=== PATIENT | female | born 1990 | race Caucasian/White ===

== ENCOUNTER 2021-11-26 05:06 | Inpatient (IN) ==
[2021-11-26] MEDS ORDERED: AZITHROMYCIN 500 MG in DEXTROSE 5% 250 ML IV STA (05:54)
[2021-11-26] MEDS ORDERED: CITRIC ACID/SODIUM CITRATE 15 ML UDC PO SCH (06:00)
[2021-11-26] MEDS ORDERED: ceFAZolin 2000MG 2,000 MG/15 ML SYR IV SCH (06:00)
[2021-11-26] MEDS ORDERED: LACTATED RINGER'S 1,000 ML IV SCH ×2 (06:00→09:47)
[2021-11-26 06:21] LABS: Basophils # (auto) 0.02 K/uL (0-0.2); Basophils % (auto) 0.2 %; Eosinophils # (auto) 0.16 K/uL (0-0.5); Eosinophils % (auto) 1.4 %; Hematocrit (blood only) 35.7 % (37-47); Hemoglobin 11.6 g/dL (12.0-16.0); Immature Granulocytes # (auto) 0.06 K/uL (0.00-0.02); Immature Granulocytes % (auto) 0.5 %; Lymphocytes # (auto) 1.99 K/uL (1.2-3.4); Lymphocytes % (auto) 17.4 %; Mean Corpuscular Hemoglobin 28.7 pg (25-34); Mean Corpuscular Hgb Conc 32.5 g/dL (32-36); Mean Corpuscular Volume 88.4 fL (80-100); Mean Platelet Volume 11.4 fL (7.4-10.4); Monocytes # (auto) 0.72 K/uL (0.11-0.59); Monocytes % (auto) 6.3 %; Neutrophils # (auto) 8.46 K/uL (1.4-6.5); Neutrophils % (auto) 74.2 %; Platelet Count 213 K/uL (130-400); RDW Coefficient of Variation 13.2 % (11.5-14.5); RDW Standard Deviation 42.5 fL (36.4-46.3); Red Blood Count 4.04 M/uL (4.2-5.4); White Blood Count 11.41 K/uL (4.8-10.8)
[2021-11-26] MEDS ORDERED: ONDANSETRON INJ 2 MG/ML 2 ML VIAL ONE (06:48)
[2021-11-26] MEDS ORDERED: OXYTOCIN 10 UNITS/ML 10ML VIAL ONE (06:48)
[2021-11-26] MEDS ORDERED: MoRPHine SULFATE PF 1 MG/ML 10 ML AMP/VIAL ONE (06:49)
[2021-11-26] MEDS ORDERED: fentaNYL citrate 100 MCG/2 ML VIAL ONE (06:49)
--- NOTE | 2021-11-26 06:53 | History & Physical Report ---
Date of Service November 26, 2021 Assessment & Plan (1) SROM (spontaneous rupture of membranes): (2) Previous delivery affecting : Plan: 31 yo at 38 1/7 wga presents with SROM VSS Fetus cat 1 SROM - is CSx2, plans repeat w/o tubal. Discussed indications, risks, benefits, alternatives with risks including infection, bleeding, injury to adjacent structures (bowel, bladder, ureters, blood vessels, nerves, baby), possible need for blood transfusion and/or life saving hysterectomy, VTE. Consent reviewed in detail w/ pt and signed after all questions answered to her satisfaction. GBS neg History of Present Illness Chief Complaint: LOF Primary Care Provider: Razia Leiva, DO 31 y/o at 38 1/7 wga presents w/ LOF since 330AM. Had small trickle, then big gush, then has been gushing clear fluid since. 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 primary CS at 38 wks SAB x 4 in b/w 2016 repeat CS at 36 wks 03/2021 reports normal, hx LEEP denies hx STIs Allergies Allergy/AdvReac Type Severity Reaction Status Date / Time No Known Allergies Allergy Verified 11/26/21 05:29 Home Medications Medication Instructions Recorded Confirmed Type montelukast 10 mg tablet 10 mg PO QAM 05/25/21 11/26/21 History (Singulair) aspirin 81 mg tablet,delayed 81 mg PO QAM 10/01/21 11/26/21 History release (Adult Low Dose Aspirin) mometasone-formoterol HFA 200 2 puff INHALATION ONCE 11/26/21 11/26/21 History mcg-5 mcg/actuation aerosol inhaler (Dulera) Patient History Medical History Asthma Gestational HTN HELLP syndrome with previous History of COVID-19 Dx 08/2020 (tested for work/asymptomatic) HPV (human papilloma virus) infection Surgical History H/O section x2 H/O LEEP [place] teeth extracted Family History Grandfather (Maternal) Pancreatic cancer Diabetes Grandmother (Paternal) Diabetes Grandfather (Maternal) Diabetes Denies family history of Ovarian cancer Breast cancer Colorectal cancer Hypertension Social History Smoking Status: Never smoker Second Hand Exposure: No; Hx Alcohol Use: No Hx Substance Use: No Preferred Language: Bengali Communication Ability: Effective Product Mgmt Dev Manager Required: No Beliefs That Will Affect Care: None marital status: marital status details: Mt Champion (30) [phone] Current Living Situation: Spouse Current Living Situation Comment: spouse and 2 children. 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) Vital Signs (Past 12 Hours) Vital Signs Temp Pulse Resp BP 11/26/21 05:29 98.6 F 18 11/26/21 05:19 77 122/81 Laboratory Results Blood Type & RH -A positive Antibody Screen -Negative HCT/HGB -13.1/38.5 Platelets -231 Hep C IgG 13yrs+ Old -Non-reactive Pap Test -WNL Chlamydia -not detected Gonorrhea -not detected Rubella -immune RPR -non reactive Urine Culture/Screen -<30,000 col/ml HBsAg -non reactive HIV -non-reactive MCV -91.5 Ultrasound Genital Culture -Many gram positive rods, few WBCs present. Normal vaginal anders * TSH - 1.005 -low risk cfdna - sln -declines afp - sln Diagnostic Findings anterior plac Coding Level of Care Code None Diagnoses SROM (spontaneous rupture of membranes) Previous delivery affecting O34.219
[2021-11-26] MEDS ORDERED: PHENYLEPHRINE 100MCG/ML 5ML SYR ONE (07:39)
--- NOTE | 2021-11-26 08:27 | Anesthesiology Progress Note ---
Date of Service November 26, 2021 Anesthesia Post Procedure Vital Signs Vital Signs: Temp Pulse Resp BP Pulse Ox 11/26/21 08:24 71 122/73 11/26/21 08:23 71 100 11/26/21 07:03 75 122/85 11/26/21 05:29 37.0 C 18 11/26/21 05:19 77 122/81 Transfer of Care Handoff Completed per policy Notes Mental Status: alert / awake / arousable and participated in evaluation Patient Amnestic to Procedure: No Nausea / Vomiting: adequately controlled Pain: adequately controlled Airway Patency, RR, SpO2: stable & adequate BP & HR: stable & adequate Hydration State: stable & adequate Neuraxial Anesthesia: was administered and sensory block is resolving Anesthetic Complications: no major complications apparent and Pt Satisfied with anesthetic care
--- NOTE | 2021-11-26 08:31 | Operative Report ---
PG Post Operative Report Pre & Post Diagnosis Operation Date: 11/26/21 05:30 Pre-Op Diagnosis: at 38 weeks and 1 day. Spontaneous rupture of membranes. History of section x2. Post-Op Diagnosis: at 38 weeks. Spontaneous rupture of membranes. History of section x2. I identified the patient and participated in the time-out.: Yes Procedure Operation Date: 11/26/21 05:30 Actual Procedures p Repeat Low Transverse Section in LD delivery of live female child at 0745(Bilateral) - Olena Clark MD Surgeon Olena Clark MD Beater Dumper Tricia BURNS Estimated Blood Loss 600 Findings Consistent with Post-Op Diagnosis Normal appearing uterus and bilateral fallopian tubes. Left ovary wnl, R ovary with small benign appearing para-ovarian cyst Specimens Cord blood, placenta Drains Machuca draining clear urine Anesthesia Type Spinal Complications none Disposition Accompanied Patient To Recovery: Yes Disposition: L&D Indications 31 y/o at 38 1/7 wga presented with spontaneous rupture of membranes. She has a history of CS x 2 and plans repeat without tubal ligation Description of Procedure The patient was taken to the operating room after consents were ensured. The patient was properly identified. Spinal anesthesia was obtained without difficulty. The patient was placed in a dorsal supine position with left lateral tilt, then prepped and draped in normal sterile fashion. Surgical time out was performed. Antibiotics were given for prophylaxis. Anesthesia was tested to ensure adequate surgical levels. Pfannenstiel skin incision was performed and carried down to the underlying fascia with a knife. The fascia was then nicked in the midline and extended laterally with pickups and Arauz scissors. Superior portion of the fascia was grasped with Kochers x2 and elevated off the underlying rectus muscles using bl unt dissection. Inferior portion of the fascia was then grasped with Basilio clamps x2 and also elevated off the underlying muscles with blunt dissection. Midline was identified. The peritoneum was then entered sharply and extended to provide adequate room for delivery of baby. The hand was inserted into the abdomen, uterus was noted to be clear of adhesions. Bladder blade was inserted, bladder flap was created in the usual fashion. A low transverse uterine incision was made in the uterus and extended bluntly in a superior to inferior fashion. Clear fluid noted at the time of entry. head was grasped and elevated through the hysterotomy in an atraumatic fashion. The baby delivered in NICCI position, no nuchal cord. Remainder of the body delivered without incident. Nose and mouth were bulb suctioned on the surgical field. The cord was double clamped and cut, baby was handed off to awaiting pediatrics staff. Cord segment and blood were obtained. Placenta was then expressed from the uterus. The uterus was exteriorized. Several passes were made inside the uterus to remove the remaining membranes. Attention was then turned to the hysterotomy, which was then closed with a running locked suture of 0 Vicryl on a CTX needle. An imbricating layer was then performed using 0-Monocryl. There was noted to be good hemostasis. The posterior cul-de-sac was then inspected and cleaned of clot and debris. The hysterotomy was again inspected and noted to be hemostatic. The uterus was returned to the abdomen. The right and left pericolic gutters were cleaned of all clot and debris. The hysterotomy was again noted to be hemostatic. Space of Retzius was noted to be hemostatic. The fascia was then closed with a running suture of 0 Vicryl on a CT1 needle. Subcutaneous tissue was copiously irrigated and noted to be hemostatic. Subcutaneous tissue was re-approximated using 2-0 plain gut. The skin was then closed with a running suture of 3-0 Monocryl in a subcuticular fashion. At termination of the procedure, the fundal pressure was applied and a moderate amount of lochia was expressed. Dermabond was applied to the patient. She tolerated the procedure well. All sponge, needle, instrument counts were correct x 2. I attest to the content of the Intraoperative Record and any orders documented therein. Any exceptions are noted below. OB Procedure Charges 18851
[2021-11-26] MEDS ORDERED: KETOROLAC 30 MG/ML VIAL ONE (08:50)
[2021-11-26] MEDS ORDERED: DIPHTHERIA/TETANUS/PERTUSSIS 0.5 ML SYR/VIAL IM ONE (09:47)
[2021-11-26] MEDS ORDERED: SENNA 8.6 MG TAB PO PRN (09:47)
[2021-11-26] MEDS ORDERED: HYDROCORTISONE ACETATE 25 MG SUPP PR PRN (09:47)
[2021-11-26] MEDS ORDERED: MAGNESIUM HYDROXIDE SUSP 30 ML UDC PO PRN (09:47)
[2021-11-26] MEDS ORDERED: BENZOCAINE 20% AER SPR 82.5 GM CAN EXT PRN (09:47)
[2021-11-26] MEDS ORDERED: MoRPHine SULFATE 2 MG/ML CARP IV PRN ×2 (09:59→10:37)
[2021-11-26] MEDS ORDERED: HYDROmorphone INJ 0.5 MG/0.5 ML SYR IV PRN (09:59)
[2021-11-26] MEDS ORDERED: OXYTOCIN 30 UNITS in LACTATED RINGER'S 1,000 ML IV SCH (10:00)
[2021-11-26] MEDS ORDERED: HYDROmorphone INJ 0.5 MG/0.5 ML SYR ONE (10:21)
[2021-11-26] MEDS: MONTELUKAST SODIUM 10 MG TABLET PO SCH (10:30)
[2021-11-26] MEDS ORDERED: PROMETHAZINE HCL 6.25 MG in SODIUM CHLORIDE 0.9% 50 ML IV PRN (10:40)
[2021-11-26] MEDS ORDERED: ePHEDrine sulfate 50 MG/ML AMP IV PRN (10:42)
[2021-11-26] MEDS ORDERED: ONDANSETRON INJ 2 MG/ML 2 ML VIAL IV PRN ×2 (10:42→10:49)
[2021-11-26] MEDS ORDERED: diphenhydrAMINE 50 MG/ML VIAL IV PRN (10:43)
[2021-11-26] MEDS ORDERED: NALOXONE HCL 1 MG in SODIUM CHLORIDE 0.9% 1000ML 1,000 ML IV PRN (10:44)
[2021-11-26] MEDS ORDERED: NALBUPHINE HCL INJ 10 MG/ML AMP IV PRN (10:45)
[2021-11-26] MEDS ORDERED: LACTATED RINGER'S 500 ML IV PRN (10:45)
[2021-11-26] MEDS ORDERED: NALOXONE HCL 0.08 MG in SYRINGE 1.8 ML IV PRN (10:46)
[2021-11-26] MEDS ORDERED: NALOXONE HCL 0.4 MG/1 ML VIAL/CARP IV PRN (10:49)
[2021-11-26] MEDS ORDERED: MoRPHine SULFATE PF 1 MG/ML 10 ML AMP/VIAL INT SPINAL ONE (11:00)
[2021-11-26] MEDS ORDERED: NO NARCOTICS OR SEDATIVES SCH (11:00)
[2021-11-26] MEDS ORDERED: SODIUM CHLORIDE 0.9% 1000ML 1,000 ML IV SCH (11:00)
[2021-11-26] MEDS ORDERED: FLUTICASONE/VILANTEROL 200/25MCG 14 PUFFS/INHALER INH SCH (11:00)
[2021-11-26] MEDS: SIMETHICONE 80 MG CHEW PO SCH ×3 (14:56→21:16)
[2021-11-26] MEDS: KETOROLAC 30 MG/ML VIAL IV PRN ×2 (14:56→20:38)
[2021-11-26] MEDS: DOCUSATE SODIUM 100 MG CAP PO SCH (20:38)
[2021-11-27] MEDS ORDERED: diphenhydrAMINE Capsule 25 MG CAP PO PRN (01:40)
[2021-11-27] MEDS ORDERED: PROMETHAZINE HCL 25 MG in SODIUM CHLORIDE 0.9% 50 ML IV PRN (01:40)
[2021-11-27] MEDS ORDERED: KETOROLAC 30 MG/ML VIAL IV PRN (01:40)
[2021-11-27] MEDS ORDERED: diphenhydrAMINE 50 MG/ML VIAL IV PRN (01:40)
[2021-11-27] MEDS ORDERED: ONDANSETRON INJ 2 MG/ML 2 ML VIAL IV PRN (01:40)
[2021-11-27] MEDS ORDERED: DC INTRASPINAL MORPHINE ONE (01:41)
[2021-11-27] MEDS: oxyCODONE/ACETAMINOPHEN 5mg/325mg TAB PO PRN ×5 (02:21→21:06)
[2021-11-27] MEDS: IBUPROFEN 600 MG TAB PO PRN ×5 (02:22→21:05)
--- NOTE | 2021-11-27 06:59 | Obstetrical Progress Note ---
Date of Service November 27, 2021 Assessment & Plan (1) Encounter for care and examination after delivery: Plan: Patient is a 31-year-old now G7, P3 who delivered via LTCS at 38 weeks gestation, postop day 1 -Continue routine care, keep today -Machuca catheter has been removed and is able to ambulate around the room -GBS negative, A+, antibody negative, rubella immune -Encouraged ambulation -Encourage breast-feeding -Pain controlled with Percocet -Follow-up with Dr. Clark in 6 weeks Admission and Anticipated Discharge Date Admission Date: November 26, 2021 Supervising Physician Co-Signing Physician Notes Resident Physician Supervision Note: I was present with Dr. Payne during the history and exam. I discussed the case with the resident and agree with the findings and plan as documented in the note. Any exceptions or clarifications are listed here: POD#1 doing well. Routine recovery. Documented By: Arianna Clarke, DO Subjective Patient is a 31-year-old now G7, P3 female who delivered via LTCS at 38 weeks gestation, postop day 1 complicated by repeat . Patient overall doing well. Patient is without Machuca catheter and ambulating around the room without difficulty. Urinating without difficulty. Able to eat and drink without nausea or vomiting. Pain controlled with Percocet. Patient is breast- feeding without difficulty. Lochia mild and improving. Reports some cramping with sitting and standing but it is tolerable. Otherwise denies fever, chills, chest pain, shortness of breath, UTI symptoms, or headache. Patient has no other complaints at this time. Review of Systems Review of Systems: All systems reviewed & are unremarkable except as noted in HPI & below Physical Exam Constitutional: WD/WN, vitals as above Eyes: + anicteric sclerae Neck: trachea midline, no thyromegaly Respiratory: normal respiratory effort, lungs clear to auscultation Cardiovascular: RRR, no murmur, no edema Gastrointestinal (Abdomen): Inspection/Auscultation: abdomen normal to inspection Percussion/Palpation: + abdomen tender and abdomen soft Musculoskeletal: Head/Neck/Chest: normocephalic and head atraumatic Skin: no rashes, warm and dry There is a dry, clean surgical incision at the inferior abdomen without surrounding erythema or discharge. Neurologic: moves all extremities Psychiatric: A+Ox3, euthymic affect Genitourinary: Uterine fundus palpated 1 cm above the umbilicus, firm Results & Data ([facility]) Vital Signs (Past 12 Hours) Vital Signs Temp Pulse Resp BP Pulse Ox 11/27/21 02:20 36.5 C 65 18 119/78 98 11/27/21 00:00 16 99 11/26/21 23:02 16 94 11/26/21 22:50 36.4 C L 68 16 98/62 L 97 11/26/21 22:00 16 96 11/26/21 21:00 16 96 11/26/21 20:03 16 99 11/26/21 19:15 36.9 C 80 16 112/71 98 11/26/21 19:00 16 100 11/26/21 18:30 18 99 11/26/21 17:32 18 98
[2021-11-27 07:36] LABS: Basophils # (auto) 0.02 K/uL (0-0.2); Basophils % (auto) 0.2 %; Eosinophils # (auto) 0.14 K/uL (0-0.5); Eosinophils % (auto) 1.3 %; Hematocrit (blood only) 28.8 % (37-47); Hemoglobin 9.3 g/dL (12.0-16.0); Immature Granulocytes # (auto) 0.03 K/uL (0.00-0.02); Immature Granulocytes % (auto) 0.3 %; Lymphocytes # (auto) 1.36 K/uL (1.2-3.4); Lymphocytes % (auto) 12.7 %; Mean Corpuscular Hemoglobin 28.9 pg (25-34); Mean Corpuscular Hgb Conc 32.3 g/dL (32-36); Mean Corpuscular Volume 89.4 fL (80-100); Mean Platelet Volume 11.5 fL (7.4-10.4); Monocytes # (auto) 0.63 K/uL (0.11-0.59); Monocytes % (auto) 5.9 %; Neutrophils # (auto) 8.51 K/uL (1.4-6.5); Neutrophils % (auto) 79.6 %; Platelet Count 199 K/uL (130-400); RDW Coefficient of Variation 13.2 % (11.5-14.5); RDW Standard Deviation 42.9 fL (36.4-46.3); Red Blood Count 3.22 M/uL (4.2-5.4); White Blood Count 10.69 K/uL (4.8-10.8)
[2021-11-27] MEDS: MONTELUKAST SODIUM 10 MG TABLET PO SCH (08:55)
[2021-11-27] MEDS: FERROUS SULFATE 325 MG TAB PO SCH (08:55)
[2021-11-27] MEDS: DOCUSATE SODIUM 100 MG CAP PO SCH ×2 (08:55→21:05)
[2021-11-27] MEDS: PRENATAL VITAMIN 1 TAB PO SCH (08:55)
[2021-11-27] MEDS: SIMETHICONE 80 MG CHEW PO SCH ×4 (08:59→21:05)
[2021-11-27] MEDS ORDERED: bisacodyL 5 MG TABEC PO SCH (20:00)
[2021-11-28] MEDS: IBUPROFEN 600 MG TAB PO PRN ×3 (01:36→09:41)
[2021-11-28] MEDS: oxyCODONE/ACETAMINOPHEN 5mg/325mg TAB PO PRN ×3 (01:36→09:41)
[2021-11-28 07:08] LABS: Hematocrit (blood only) 28.4 % (37-47); Hemoglobin 9.2 g/dL (12.0-16.0)
[2021-11-28] MEDS ORDERED: bisacodyL 10 MG SUPP PR PRN (08:12)
--- NOTE | 2021-11-28 08:45 | Obstetrical Progress Note ---
Date of Service November 28, 2021 Assessment & Plan (1) Encounter for care and examination after delivery: Postoperative from section patient meets discharge criteria as she is ambulating well tolerating an oral diet has minimal bleeding and no extremity pain. Discharge instructions were reviewed and prescriptions were sent to her pharmacy of choice patient advised to call with any concerns and follow-up in the office discussed Subjective Ambulation: ambulating normally Voiding: no voiding problems Passing Gas:: Yes Diet Tolerance:: regular diet Lochia:: Small Physical Exam Gastrointestinal (Abdomen) normal bowel sounds, soft, nontender, no hepatosplenomegaly Results & Data ([facility]) Vital Signs (Past 12 Hours) Vital Signs Temp Pulse Resp BP Pulse Ox 11/27/21 22:59 98.4 F 60 18 115/76 98
[2021-11-28] MEDS: PRENATAL VITAMIN 1 TAB PO SCH (09:40)
[2021-11-28] MEDS: SIMETHICONE 80 MG CHEW PO SCH (09:40)
[2021-11-28] MEDS: MONTELUKAST SODIUM 10 MG TABLET PO SCH (09:40)
[2021-11-28] MEDS: FERROUS SULFATE 325 MG TAB PO SCH (09:41)
[2021-11-28] MEDS: DOCUSATE SODIUM 100 MG CAP PO SCH (09:41)
--- NOTE | 2021-11-30 07:38 | Discharge Summary ---
Date of Service November 30, 2021 Admission HPI Per Admitting Provider 31 y/o at 38 1/7 wga presents w/ LOF since 330AM. Had small trickle, then big gush, then has been gushing clear fluid since. 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 She has a history of CS x 2 and plans repeat without tubal ligation. See operative report for details. Postop course was uncomplicated and she was discharged home on POD2 Coding Level of Care Code None Diagnoses SROM (spontaneous rupture of membranes) Previous delivery affecting O34.219
== END 2021-11-28 12:00 | disposition home or self-care (01) | DRG 788 ==
LOC: OPB 05:06 → 4S1 05:10 → 4E2 09:33